=== PATIENT | male | born 1955 | race Caucasian/White ===

== ENCOUNTER 2019-02-03 16:57 | Inpatient (IN) | payer OTHER ==
[~2019-02-03] VITALS: Ht 185.4 cm; Wt 91.8 kg
--- NOTE | ~2019-02-03 | H ---
[facility] [place] [address] HISTORY AND PHYSICAL Name: ERIC DOW Room #: 527B-B ADM IN M.R.#: [id number] Admission: 02/03/19 ������������������ Attend Phys: Gilberto Do DO Discharge: ������������������ Date of : 51 Report #: [id number] THIS REPORT FOR: //name// CC: Gilberto Bran Lititz DATE OF SERVICE: 02/04/2019 IDENTIFYING INFORMATION: This is a 64-year-old male, , has 5 children. 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 CHIEF COMPLAINT: "Anxious." HISTORY OF PRESENT ILLNESS: This is a 64-year-old male who was admitted to [facility] with depressive symptoms and according to the reports, he was hiding a butter knife with the intent of harming himself. The patient reports he has been an ticket dispenser changer all his life. He retired 2 years ago and soon, he started experiencing his first episode of depression. He describes low energy, low motivation, anhedonia, feeling of depression, hopelessness with anxiety. He describes anxiety as chronic worries, doubt. He does not endorse any compulsive behavior, but feels he ruminates about thoughts whenever there is conflict within himself or by statements of others. The patient has been feeling frustrated, hopeless and was having suicidal ideations. He denies any recreational drug and alcohol use. He denies any auditory or visual hallucinations. No previous episodes of ziyad or hypomania. PAST PSYCHIATRIC HISTORY: The patient reports he has been hospitalized several times in the past. He has thought about suicide, but he denies any previous suicide attempts. He denies any self-harm behavior. No electroconvulsive therapy in the past. The patient sees Dr. Davis at for depression. 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 History of migraine, benign prostatic hypertrophy. PAST SURGICAL HISTORY: Tonsillectomy, inguinal hernia repair surgery. CURRENT MEDICATIONS: Zyprexa, Klonopin, Effexor, trazodone, Depakote, Remeron and propranolol. ALLERGIES: No known drug allergies. FAMILY HISTORY: Not significant. PERSONAL AND SOCIAL HISTORY: A 64-year-old male, was born and raised in [place]. The patient has 2 brothers and 1 sister growing up[place] [address] HISTORY AND PHYSICAL Name: ERIC DOW Room #: 527B-B [facility]#: [id number] Admission: 02/03/19 ������������������ Attend Phys: Gilbetro Do DO Discharge: ������������������ Date of : 51 Report #: [id number] 2-parent family. He denies any abuse growing up. 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 He has been once. He has 5 children, grown up. The patient is currently retired. REVIEW OF SYSTEMS: Denies any headache, chest pain or shortness of breath. PHYSICAL EXAMINATION: VITAL SIGNS: Temperature 36.4, pulse 50 per minute, blood pressure 147/92 mmHg. MENTAL STATUS EXAMINATION: This is a 64-year-old male, appears to be of his stated age, casually dressed, somewhat disheveled. He is alert and oriented to time, place and situation. He exhibits psychomotor slowing with some shuffling. No tremors evident. Mood is depressed. Affect is blunted. Immediate and recent memory is limited, able to remember 1 object out of 3 after 5 minutes. Remote memory appears intact. No hallucinations, no delusions. Significant cognitive distortions self of worthlessness. Insight and judgment are poor. Suicidal ideations present. No homicidal ideations. ASSETS: Verbal, supportive family. LIABILITIES: Chronicity of illness and physical health issues. DIAGNOSIS: Major depressive disorder, recurrent, severe without psychotic symptoms, rule out generalized anxiety disorder, rule out obsessive compulsive disorder, obsessive type; tonsillectomy, inguinal hernia repair surgery, benign prostatic hypertrophy, vocal cord growth. RECOMMENDATIONS: The patient will be monitored for sleep, appetite, mood and behavior. Collateral information will be obtained. Medical records will be reviewed and adjust medication according to response while we are monitoring sleep, appetite, mood, behavior, suicidal ideations. We will provide supportive environment, challenge cognitive distortions. ESTIMATED LENGTH OF STAY: Ten days plus. DISCHARGE CRITERIA: Absence of suicidal thoughts for 2 consecutive days prior to discharge. ��������������������������������������������� ���������������������������������������� By: ��������������������������������������������� [id number] Wei Alford MD /nt
[2019-02-03 17:43] VITALS: BP 158/82
--- NOTE | 2019-02-03 18:43 | NUR ---
PT. ADMITTED FROM PER [facility] ACCOMPANIED BY MINER OPERATOR AND [employer] LOCATION MANAGER OF [employer]. HE WAS COOPERATIVE WITH ADMISSION PROCESS, SKIN CHECK, AND VITALS. PT. ATTEMPTED TODAY TO CONCEAL A KNIFE TO CUT HIMSELF AND HAS ATTEMPTED TO PLACE A BAG OVER HIS HEAD. BOTH TIMES STAFF CAUGHT HIM AND HE STOPPED THIS BEHAVIOR. ABOUT A YEAR AGO HE CUT HIS WRIST WITH A KNIFE AND NEEDED HOSPITALIZED. HE HAS BEEN IN THE HOSPITAL TWO TIMES IN THE PAST FOR THESE BEHAVIORS. HIS LIVES ABOUT [address] HOU[address] AWAY AND IS COMING TOMORROW TO SEE PT. AND SIGN PAPERS. SHE IS HIS DPOA AT THIS TIMES. THE PAPERS ARE ON THE PT. CHART. NO OTHER PHYSICAL ILLNESSES NOTED AT THIS TIME.
[2019-02-03] MEDS ORDERED: NEURONTIN 300300 M1 PO (18:53)
[2019-02-03] MEDS ORDERED: ZYPREXA5 MG PO (19:02)
[2019-02-03] MEDS ORDERED: KLONOPIN0.5 MG PO (19:03)
[2019-02-03] MEDS ORDERED: VENLAFAXINE HC100 MG PO (19:04)
[2019-02-03] MEDS ORDERED: TRAZODONE HCL50 MG PO (19:06)
[2019-02-03] MEDS ORDERED: DEPAKOTE500 MG PO (19:07)
[2019-02-03] MEDS ORDERED: MIRTAZAPINE15 M2 PO (19:09)
[2019-02-03] MEDS ORDERED: PROPRANOLOL 1010 MG PO (19:10)
[2019-02-03 21:01] VITALS: BP 118/72
--- NOTE | 2019-02-03 23:42 | NUR ---
ASSUMED CARE OF THE PT AT 1914 PM. ALERT ET ORIENTED X 3. MAKES NEEDS KNOWN. THE PT HAS A FLAT AFFECT. DENIES ANXIETY AND DEPRESSION. DENIES SI AND HI. DENIES A/V HALLUNICATIONS. DENIES RACING THOUGHTS AND NIGHTMARES. REMAINS ON 12 MINUTE CHECKS FOR HIS SAFETY.
[2019-02-04] MEDS ORDERED: EFFEXOR XR150 MG PO (01:52)
--- NOTE | 2019-02-04 03:24 | NUR ---
THE PT APPEARS TO HAVE BEEN SLEEPING MOST OF THE NOC SHIFT. RESP., EVEN, AND UNLABORED. REMAINS ON 12 MINUTE CHECKS FOR HIS SAFETY.
[2019-02-04 05:40] VITALS: BP 150/91
[2019-02-04 07:45] VITALS: BP 147/92
--- NOTE | 2019-02-04 11:44 | NUR ---
ASSUMED PATIENT CARE AT 0700, PATIENT AWAKE IN BED. PATIENT AGREED TO COME TO D.R. FOR BREAKFAST; DID NOT HAVE A WHOLE SET OF CLOTHES TO WEAR IN HIS LOCKER. NURSE PROVIDED HIS BLUE JEANS TO HIM. STATED THAT HE NEEDED HIS RED SHIRT, WHICH IS NOT. SUSPECT RED SHIRT [facility] VISIT IN THE ER AT THAT HOSPITAL BEFORE BEING ADMITTED HERE. BLUNTED AFFECT, PACING BEHAVIOR WHILE IN HIS ROOM, IS ABLE TO SIT STILL FOR MEALS.
[2019-02-04 20:27] VITALS: BP 98/66
[2019-02-05 02:31] VITALS: BP 98/66
[2019-02-05 02:35] VITALS: BP 98/66
--- NOTE | 2019-02-05 02:49 | NUR ---
QUIET AND ON THE EDGE OF THE PEER GROUP. WATCHING TV. COOPERATED WITH ASSESSMENT. TOOK HS MEDS PRESCRIBED, AND WENT TO BED. SLEEPING WELL THROUGH THE NIGHT TO THIS POINT.
[2019-02-05 07:25] VITALS: BP 128/84
--- NOTE | 2019-02-05 10:33 | NUR ---
0720: Report from rec from [facility] shift, care assumed. Ambulatory in chowdary to DR, feeds self, appetite good, takes meds whole w/o difficulty. Participates in 0900 therapy group. Medications explained to pt, questions answered. No verbaliziation from pt about SI, denies hallucinations or intention to harm self.
[2019-02-05 19:46] VITALS: BP 93/55
--- NOTE | 2019-02-05 20:17 | NUR ---
ASSUMED CARE OF THE PT AT 1914 PM. ALERT ET ORIENTED X 4. MAKES NEEDS KNOWN. HEART RATE REGULAR. LUNGS CLEAR BILATERALLY. RESP., EVEN, AND UNLABORED. DENIES ANXIETY AND DEPRESSION, DENIES SI AND HI CURRENTLY. THE PT IS LYING IN BED WHEN THIS REHAB SERVICES AIDE CAME ON DUTY. VERY PLEASANT VOICE. DENIES A/V HALLUNICATIONS. REMAINS ON 12 MINUTE CHECKS FOR HIS SAFETY.
[2019-02-06 09:00] VITALS: BP 148/90
[2019-02-06 09:13] VITALS: BP 148/90
--- NOTE | 2019-02-06 09:30 | NUR ---
PT STATED HE HAS SOME ANXIETY AND LEVEL WAS 6 ON 1-10 SCALE. ASKED PATIENT WHAT DOES HE DO IF HE DIDN'T HAVE MEDICATION TO HELP RELIEVE ANXIETY, DIDN'T RESPOND WITH AN ANSWER. OFFED READ BOOKS OR WALK, MAYBE AN HOBBY.
--- NOTE | 2019-02-06 11:17 | NUR ---
ADM HYDROXINE 25MG PO FOR COMPLAINTS OF ANXIETY OF 6 ON 1-10 SCALE. THIS IS A NEW MED FOR ANXIETY SYMPTOMS.
--- NOTE | 2019-02-06 12:20 | NUR ---
PT STATED THAT HYRDOXINE HAS HELPED WITH ANXIETY FEELINGS. OUT TO EAT LUNCH. BEFORE HE STAYED IN ROOM PACING.
--- NOTE | 2019-02-06 17:00 | NUR ---
SW schedule a family meeting with the pt Gely. SW schedule for January at 11:30am.
--- NOTE | 2019-02-06 17:41 | NUR ---
PT HAS HAD GOOD DAY TODAY. PT ATTENDED GROUPS TODAY. PT REFUSED ANY MORE HYDROZINE AT THIS TIME. PT WAS IN ROOM AFTER AM GROUP, NOW IN DINING ROOM WITH OTHER PATIENTS.
[2019-02-06 19:53] VITALS: BP 116/72
--- NOTE | 2019-02-06 23:17 | NUR ---
WITHDRAWN MAJORITY OF SHIFT-DID COME OUT OF ROOM FOR HS SNACK WITH PROMPTING AND APPEARED TO VISIT BRIEFLY WITH FEMALE PEER-FLAT AFFECT-DELAYED VERBAL RESPONSES DURING 1'1 INTERACTION WITH THIS RN-DENIES CURRENT SI/SH AND MINIMIZES RECENT THOUGHTS PRIOR TO HSOPITAL STAY STATING "THEY WERE JUST FLEETING" I DIDN'T REALLY HAVE A PLAN. WHEN ASKED ABOUT TRIGGERS OR PRECIPITANTS TO SI STATES "WELL I WOUND UP ON THIS MEMORY CARE UNIT-I'M NOT SURE BUT I MAY HAVE TO GO BACK THERE" DOES REPORT INCREASED ANXIETY RATED A 7 ON 1-10 SCALE D/T UNKNOWN DC PLAN-REFUSES OFFERS OF VISTARIL PRN TO ASSIST WITH SLEEP/ANXIETY "I DON'T THINK I'LL NEED IT"
--- NOTE | 2019-02-07 04:11 | NUR ---
AWAKE AND ON TOILET FOR APPROX 45 MINUTES STATES FEELS LIKE HE HAS TO URINATE BUT HE CAN NOT-STATES HAS TAKEN FLOMAX FOR YEARS BUT IS NOT NOTED TO BE ON IT CURRENTLY-ENCOURAGED TOSPEAK TO MD IN AM-NO BLADDER DISTENSION /PELVIC TENDERNESS NOTED/DEMONSTRATED UPON EXAM
--- NOTE | 2019-02-07 06:00 | NUR ---
BLADDER SCAN COMPLETED D/T CONTINUED REPORTS OF FEELING "LIKE I NEED TO URINATE BUT I CAN'T" SCAN INDICATES APPROX 950CC IN BLADDER- [facility] CONTACTED ORDERS RECEIVED TO STRAIGHT CATH FOR UA-PT TOLERATED WELL APPROX 400 CC DARK YELLOW URINE DRAINED-SPECIMIN OBTAINED-REPORTS DECREASED PRESSURE IN PELVIC AREA-STATES WAS NOT AWARE HE WAS NO LONGER TAKING FLOMAX AND IS GLAD IT IS RESTARTED-FLOMAX 0.4MG GIVEN PO AT 0515 PER ORDER
[2019-02-07 07:21] LABS: URINE BILIRUBIN NEGATIVE (Negative); URINE BLOOD NEGATIVE (Negative); URINE CLARITY CLEAR; URINE COLOR YELLOW; URINE GLUCOSE-RANDOM* NEGATIVE (Negative); URINE KETONES TRACE (Negative); URINE LEUKOCYTES NEGATIVE (Negative); URINE NITRITE NEGATIVE (Negative); URINE PROTEIN (DIPSTICK) NEGATIVE (Negative); URINE UROBILINOGEN 0.2 E.U./dl (0.2-1.0)
--- NOTE | 2019-02-07 08:00 | NUR ---
PT SITTING ON TOILET AND STATED HE IS HAVING A HARD TIME TO VOID. HAD PT LAY IN BED AND PERFORMED BLADDER SCAN, 499ML IN BLADDER.
--- NOTE | 2019-02-07 08:12 | NUR ---
PT VOIDED, RECHECKED BLADDER SCAN WITH PT LAYING DOWN. BLADDER SCAN RESULT 393ML. PT STATED HE FELT BETTER AFTER HE VOIDED AND DIDN'T HAVE THE PRESSURE TO STOMACH BEFORE, ENCOURAGED PT TO STAND WHEN VOIDING AND NOT SITTING DOWN ON TOLIET.
[2019-02-07 10:01] VITALS: BP 134/98
[2019-02-07 15:25] VITALS: BP 134/98
--- NOTE | 2019-02-07 15:30 | NUR ---
PT HAS BEEN COMMUNICATING WITH STAFF. PT DENIES ANY ANXIETY TO THIS NURSE. PT HAS BEEN ATTENDING GROUPS. PT DAUGHTER VISITED TODAY, PT ALSO PARTICIPATED IN PETS THAT CAME TO VISIT.
[2019-02-07 19:47] VITALS: BP 107/64
--- NOTE | 2019-02-08 00:48 | NUR ---
SUPERFICIAL CONVERSATION DURING PM WRAP UP GROUP STATING HE FELT LIKE HE HAD MET HIS GOAL FOR THE DAY WHICH WAS HAVING LESS ANXIETY AND FEELING LESS ANXIOUS. VISTARIL 25 MG GIVEN PO PRN AT 2130 ALONG WITH HS MEDS FOR SLEEP/ANXIETY.FLAT AFFECT-DELAYED VERBAL RESPONSES.
[2019-02-08 07:29] VITALS: BP 124/89
[2019-02-08 11:55] VITALS: BP 124/89
--- NOTE | 2019-02-08 12:40 | NUR ---
PATIENT WITHDRAWN AND QUIET. WANDERS ABOUT ROOM - NEEDED REDIRECTION TO ATTEND BREAKFAST. STATES VERY ANXIOUS BUT UNABLE TO EXPLAIN WHY. CLAIMS IT IS CURRENT EVENTS IN HIS LIFE. HAVE NOT BEEN ABLE TO COPE. DENIES ANY THOUGHTS OF S/I CURRENTLY - GOAL IS TO BE BETTER ABLE TO DEAL WITH STRESSES. QUIET - UTILIZED IPAD THIS MORNING - ATTENDED GROUPS - MEDICATION COMPLIANT. FAMILY VISITED AND APPEARED TO GO WELL. RESPONSIVE TO QUESTIONS ADDRESSED TO HIM BUT SOMETIMES ONE WORD ANSWERS. NEEDS PROMPTING AND ENCOURAGEMENT. NOTED SHUFFLE IN HIS WALK WHEN AMBULATING. TO ADDRESS WITH FAMILY. NO AGITATION OR AGGRESSIVE BEHAVIOR. CALM, COOPERATIVE - NEEDING REDIRECTION AND ENCOURAGEMENT.
[2019-02-08 20:12] VITALS: BP 123/69
--- NOTE | 2019-02-08 20:16 | NUR ---
ASSUMED CARE @ 19:15. IN BED WITH LIGHTS OFF. OPENED EYES TO KNOCK AND VOICE. DENIED SI AND HI. DENIED CURRENT NEEDS. COOPERATED WITH ASSESSMENT. WILL CONTINUE TO MONITOR.
--- NOTE | 2019-02-08 21:52 | NUR ---
2100 MEDS TAKEN WHOLE WITH WATER. EYEDROPS PROVIDED. DENIES NEEDS, WILL CONTINUE TO MONITOR.
--- NOTE | 2019-02-09 06:38 | NUR ---
Slept 8 hours.
[2019-02-09 07:00] VITALS: BP 125/80
--- NOTE | 2019-02-09 09:42 | NUR ---
ASSUMED CARE OF PT APPROX 0730, REPORT WAS GIVEN PT C/O HIS UPPER LEFT EXTREMITY, COLD TO TOUCH, VS TAKEN, WNL FOR HIM, 02 SATURATION DIFFERENT FROM RIGHT TO LEFT HAND, PT EXPLAINS HE HAS HAD LEFT WRIST SURGERY AND THIS IS CHRONIC. LATER IN DAY ROOM HIS BREATHING IS RAPID, AGAIN REPORTED OFF HIS NORM, GAVE GENTLE REMINDER OF HIS FAST SHALLOW BREATHING AND HOW IT RETAINS CARBON DIOXIDE AND WORSENS HIS ANXIETY. HE DID RETURN DEMO ON SLOW DEEP BREATHING. SAID HE DIDN'T WANT HIS TO COME VISIT AND SEE HIM THIS WAY. THEN CHANGED HIS MIND. LET HIM KNOW WE'D WALK IN THE HALLWAY LATER TO HELP WITH CIRCULATION AND ANXIETY. HE WANTED TO WALK IMMEDIATELY YET THIS NURSE STILL IN MIDST OF MED PASS/ASSESSMENT. ENCOURAGED HIM W/WALK LATER. WILL CONTINUE TO MONITOR, HE'S A&0X3 AT THIS TIME, AMB STEADY
--- NOTE | 2019-02-09 15:30 | NUR ---
Date of Admission: 02/03/19 Date of Activity Therapy Assessment: 02/06/19 Activity Goal: Manage anxiety symptoms Initial Goal: 1 Group activity/day Weekly progress towards goal: On track Group participation level: Moderate Behaviors observed: Pt attends most groups, though states he experiences anxiety in the mornings and shows spotty participation during those times. Pt mood is depressed and flat. Plan: No change towards goal
--- NOTE | 2019-02-09 20:10 | NUR ---
ASSUMED CARE @ 19:15. IN ROOM LYING IN BED. ASSESSMENT COMPLETE, HRRR LUNGS CTA, ABD NORMOACTIVE. DENIES PAIN. WILL CONTINUE TO MONITOR.
[2019-02-09 20:18] VITALS: BP 97/58
--- NOTE | 2019-02-10 05:21 | NUR ---
SLEPT WELL THROUGH THE NOC.
--- NOTE | 2019-02-10 06:27 | NUR ---
SLEPT 10 HOURS.
--- NOTE | 2019-02-10 08:33 | NUR ---
ADM HYDROXYZIN 25MG PO FOR ANXIETY.
--- NOTE | 2019-02-10 08:37 | NUR ---
PT STATED VERY ANXIOUS TODAY ON SCALE 0-10, PT STATED ITS WAY UP THERE. PT EATING BREAKFAST AND GOING BACK TO ROOM AND PACING. PT LUNGS CLEAR AND ON ROOM AIR. PT HAS STEADY GAIT. PT WILL ACCEPT ANTI-ANXIETY MEDICATION.
[2019-02-10 09:00] VITALS: BP 114/71
[2019-02-10 10:31] LABS: HEMATOCRIT 40.9 % (42.0-52.0); HEMOGLOBIN 13.8 gm/dL (14.0-18.0); MCH 29.9 pg (26.0-34.0); MCHC 33.7 g/dL (28.0-37.0); MCV 88.8 fL (80.0-100.0); RBC 4.61 mil/uL (4.50-6.00); RDW 16.4 % (10.5-14.5); WBC 5.4 thou/uL (4.0-11.0)
[2019-02-10 10:39] LABS: CREATININE 0.8 mg/dL (0.7-1.3); MAGNESIUM 1.8 mg/dL (1.8-2.4); POTASSIUM 3.8 mmol/L (3.5-5.1)
[2019-02-10 10:45] VITALS: BP 114/91
--- NOTE | 2019-02-10 16:03 | NUR ---
PT HAS BEEN WALKING IN [place] A FEW TIMES TODAY. SEEMS NOT ANXIOUS AT THIS TIME.
[2019-02-10 19:47] VITALS: BP 119/59
--- NOTE | 2019-02-10 21:30 | NUR ---
assumed care of the pt at 191 pm. alert et oriented x 4. makes needs known. took his medications without difficulty. continues to have a flat affect. remains on 12 minute checks for his safety.
--- NOTE | 2019-02-11 03:17 | NUR ---
THE PT HAS BEEN IN BED MOST OF THE SHIFT. RESP., EVEN, AND UNLABORED. MAKES NEEDS KNOWN.
[2019-02-11 08:00] VITALS: BP 110/72
--- NOTE | 2019-02-11 08:30 | NUR ---
PT ATE BREAKFAST THIS AM AND THEN UP WALKING AROUND UNIT. PT PACES IN [place] OR ROOM. PT STATED HE GETS MORE ANXIETY IN AM. PT STATED IT STARTED AFTER HE RETIRED. PT STATED LAST BM YESTERDAY. LUNGS CLEAR. PT PARTICIPATING IN GROUP.
--- NOTE | 2019-02-11 09:44 | NUR ---
PT ASKED FOR ANTI-ANXIETY MED. ADM HYDROXYZIN 25MG PO FOR ANXIETY.
--- NOTE | 2019-02-11 18:08 | NUR ---
PT HAS ATTENDED GROUPS TODAY. PT HAS NOT ASKED FOR ANYTHING ELSE FOR ANXIETY.
[2019-02-12 00:30] VITALS: BP 110/72
--- NOTE | 2019-02-12 04:09 | NUR ---
ASSUMED CARE @ 19:15. IN BED, EYES CLOSED. AWAKENED TO VOICE, ALLOWED ASSESSMENT AND VS. HRRR, LUNGS CTA, ABD [id number]. DENIES SI. REPORTS ANXIETY, WORRYING ABOUT TOMORROW. SLEPT WELL. AWAKENED TO GIVE 0000 MEDS. RETURNED TO SLEEP. WILL CONTINUE DOING 12 MINUTE ROUNDS FOR PT SAFETY.
--- NOTE | 2019-02-12 05:56 | NUR ---
SLEPT 9.8 HOURS NOC.
[2019-02-12 07:45] VITALS: BP 144/95
--- NOTE | 2019-02-12 10:34 | NUR ---
ASSUMED PATIENT CARE AT 0715. PATIENT UP IN HIS ROOM, APPEARED ANXIOUS. ALSO VERBALIZED THAT HE WAS VERY ANXIOUS, STATED ANXIETY OVERWHELMING. NURSE ENCOUYRAGED TO RELAX AND TAKE SLOW DEEP BREATHS. PATIENT DID COME TO BREAKFAST, SOME PARTICIPATION IN R.T. GROUP, ALSO A.M. GOALS GROUP. PACING IN D.R. AT THIS TIME.
--- NOTE | 2019-02-12 11:19 | NUR ---
Nutrition: pt admitted with depression, SI and seen due to LOS on [facility] unit. Pt eating 100% of meals on regular diet and reports likes the food he is getting. Stable weights reported. No nutritional concerns. Low nutrition risk.
--- NOTE | 2019-02-12 11:27 | NUR ---
ASSUMED PATIENT CARE AT 0715. PATIENT UP IN ROOM, PACING, LOOKING VERY TENSE. PATIENT STATED THAT HE WAS EXTREMELY ANXIOUS. NURSING ENCOURAGED PATIENT TO PRACTICE SLOW, DEEP BREATHING TO HELP HIM RELAX. FLAT AFFECT, SAD MOOD, ANXIOUS BEHAVIOR, EVIDENCED BY PATIENT PACING. CONTINUE TO MONITOR.
[2019-02-12 11:49] VITALS: BP 144/95
--- NOTE | 2019-02-12 12:45 | NUR ---
KELLY faxed the d/c documents to [facility] to Alem. KELLY provided contact information if she have any questions.
[2019-02-12 19:35] VITALS: BP 106/57
--- NOTE | 2019-02-12 21:47 | NUR ---
ASSUMED CARE OF THE PT AT 191 PM. ALERT ET ORIENTED X 3. MAKES NEEDS KNOWN. WALKS WITH A STEADY GAIT. DENIES ANXIETY AND DEPRESSION. DENIES SI/HI, A/V HALLUNICATIONS, RACING THOUGHTS AND NIGHTMARES. REMAINS ON 12 MINUTE CHECKS. FOR HIS SAFETY.
--- NOTE | 2019-02-13 07:01 | NUR ---
the pt slept 10.0 hours last night.
[2019-02-13 07:47] VITALS: BP 143/86
--- NOTE | 2019-02-13 08:30 | NUR ---
PT FINISHED BREAKFAST FAST. PT STATED HE HAS INCREASED ANXIETY IN THE AM MORE THAN ANYTIME OF THE DAY. NOTICED HYPERVENTILATING BREATHING. PT STATED HE FEELS LIKE SOMETHING IS WRONG.
[2019-02-13 09:00] VITALS: BP 143/86
--- NOTE | 2019-02-13 16:42 | NUR ---
PT WALKING AROUND IN THE UNIT. DIDN'T SEEM SO ANXIOUS.
[2019-02-13 20:08] VITALS: BP 102/62
--- NOTE | 2019-02-13 23:49 | NUR ---
ASSUMED CARE OF THE PT AT 191 PM. ALERT ET ORIENTED X 3. SPEAKS WITH A SOFT VOICE. DENIES SI/HI, A/V HALLUNICATIONS. DENIES ANXIETY AND DEPRESSION. WALKS WITH A STEADY GAIT. REMAINS ON 12 MINUTE CHECKS FOR HIS SAFETY.
--- NOTE | 2019-02-14 05:48 | NUR ---
THE PT GOT UP FROM BED AFTER TAKING HIS AM MEDICATIONS, HE WAS A LITTLE UNSTEADY ON HIS FEET, ACCORDING TO THE COST ACCOUNTING CLERK, TOOK THE PT'S VITAL SIGNS WHICH WERE 136/74, 71 AND O2 SAT 98%. THE PT MENTIONED TO THIS BLOCK HACKER HE DIDN'T WANT TO GO BACK TO THE ASS[facility] PLACE WHERE HE CAME FROM. HE SAID THAT THIS WOULD HAPPEN AGAIN, THAT THEY WOULD DO THE SAME DANCE ALL OVER AGAIN. WILL PASS ONTO THE NEXT SHIFT REGARDING HIS FEELINGS. REMAINS ON 12 MINUTE CHECKS FOR HIS SAFETY.
--- NOTE | 2019-02-14 10:03 | NUR ---
UP TO DINING ROOM FOR BREAKFAST. GOOD APPETITE. REPORTS FEELING ANXIOUS. VOICE VERY QUIET AND DIFFICULT TO UNDERSTAND. PARTICIPATED IN GROUPS.
--- NOTE | 2019-02-14 16:29 | NUR ---
SW faxed update notes to Emmie in [facility]. SW mention that pt will be discharging on , February 15, 2019. SW have arrange transportation for the pt on tomorrow at 1:30pm. SW will follow-up with the family upon discharge.
[2019-02-14 19:52] VITALS: BP 114/71
--- NOTE | 2019-02-15 04:54 | NUR ---
Pt verbalized he is not ready to go home, that he is concerned he will have to return. Pt denied having an outpatient dr or therapist to work with.
--- NOTE | 2019-02-15 04:57 | NUR ---
PT AWAKE, CONCERN ABOUT HIM NOT READY TO GO HOME YET, CONTINUE TO REITERATE THIS, INFORM HIM WILL PASS THIS ON TO THE DAY RN, GIVEN AM MEDS AT THIS TIME, PT UP AND AMBULATING AROUND THE [place] WAY.
[2019-02-15] MEDS ORDERED: FLOMAX0.4 MG PO (06:06)
[2019-02-15] MEDS ORDERED: PROPRANOLOL 1010 MG PO (06:06)
[2019-02-15] MEDS ORDERED: DEPAKOTE500 MG PO (06:07)
[2019-02-15] MEDS ORDERED: EFFEXOR XR75 MG PO (06:07)
[2019-02-15] MEDS ORDERED: ZYPREXA 5 MG TAB5 M1 PO (06:08)
[2019-02-15] MEDS ORDERED: LATANOPROST2.5 ML OPHTHALMIC (06:09)
--- NOTE | 2019-02-15 09:06 | NUR ---
KELLY spoke with Alyx at [facility] concerning pt being discharge. Alyx was speaking to Alem in mention that the SW from [facility] is on the phone, and she would like to speak with you. Alem refuse in told her to tell me that she will call me back later. KELLY mention if Alyx could let Alem know that pt will be discharging at 1330 this afternoon, and all update notes have being sent. KELLY will follow-up with the pt upon discharge.
--- NOTE | 2019-02-15 11:43 | NUR ---
PATIENT HAS BEEN UP AND OUT ON THE UNIT, VERY ANXIOUS THIS MORNING REQUIRING PRN MEDICATION. ATIVAN 1MG GIVEN AT 0816 HOURS WITH POSITIVE EFFECT. PATIENT HAS BEEN CALM, HAD BREAKFAST, TOOK ALL HIS MORNING MEDICATION WITHOUT DIFFICULTY. PATIENT PARTICIPATED IN MORNING GROUP WITHOUT ANY DIFFICULTY. PATIENT DENISIES SUICIDAL/HOMOCIDAL IDEATION. BOTH DEPRESSION AND ANXIETY RATED 4/10 AT THIS TIME, "MY ANXIETY IS GOOD NOW". PATIENT DENIES AUDITORY/VISUAL HALLUCINATION, HE DENIES HAVING PHYSICAL PAIN. PATIENT IS EATING MEALS, AND DRINKING FLUID WELL. HE IS CURRENTLY SITTING IN DAY ROOM WATHCING TV. PATIENT IS DISCHARGEED TO THE [facility] BY DR. KATZ TODAY AWAITING PICK-UP [facility]. WILL MONITOR FOR SAFETY.
--- NOTE | 2019-02-15 11:46 | NUR ---
Patient Name: ERIC DOW Admission Date: 02/03/19 DISCHARGE PLAN: Pt will be discharging to [facility] ER. Care Assessment: Pt was assessed by Dr. Do, and diagnosed with Front Temporal Dementia Level II Assessment: None Transportation: Pt will be transported by [facility] Special Instructions/Notes: Dr. Do recommended that pt be in a memory care setting. Dr. Do and explained to pt Nereida the importance of family support concerning care and wellbeing. DISCHARGE TO FACILITY: Memory Care unit Facility: [facility] Fax: Address: [address] [place] [id number] Contact Name: Alyx PCP: SHAYAN Psychiatrist: LINSEY Psychiatrist
[2019-02-15 14:36] VITALS: BP 131/82
--- NOTE | 2019-02-15 16:14 | EKG ---
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 Hand: KALEB : 1955 Requested By: Gilberto Do Order Number: [id number] MD: Anthony Downs Measurements Intervals Belt Rate: 60 P: 42 WV: 165 QRS: 27 QRSD: 100 T: 62 QT: 441 QTc: 441 Interpretive Statements Sinus rhythm Nonspecific T abnrm, anterolateral leads Baseline wander in lead(s) V2 No previous ECG available for comparison Electronically Signed On 02-15-2019 16:14:17 CDT by Anthony Downs [email or web address] ��������������������������������������������� <ELECTRONICALLY SIGNED> ���������������������������������������� By: Anthony Downs MD ��������������������������������������������� 02/15/19 [id number] [id number] Anthony Downs MD /GABBY
--- NOTE | 2019-02-19 00:01 | D ---
[facility] [place] [address] DISCHARGE SUMMARY Name: JAYSHREEJJPAO Room #: 527B-B [facility] M.R.#: [id number] Admission: 02/03/19 ������������������ Attend Phys: Wei Alford MD Discharge: 02/15/19 ������������������ Date of : 51 Report #: [id number] THIS REPORT FOR: //name// CC: Shant Alford DATE OF SERVICE: 02/15/2019 ATTENDING PHYSICIAN: Gilberto Do DO CORROSION CONTROL TECHNICIAN AT THE TIME OF DISCHARGE: Edmar Hoffman MD DISCHARGE DIAGNOSES: 1. Major neurocognitive disorder, likely due to frontotemporal dementia with behavioral disturbance, some improvement. 2. 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 3. Generalized anxiety disorder, variable improvement. MEDICAL COMORBIDITIES: Include BPH. He is on Flomax. History of migraines and none during the hospitalization. DISCHARGE DIET: Regular. ACTIVITY LEVEL: As tolerated. The patient will require 24/7 supervision assistance due to his major neurocognitive disorder. He was discharged to the [facility]. Psychiatric and medical care would be at that facility. REASON FOR ADMISSION: Several suicidal gestures including placing a bag over his head. HOSPITAL COURSE: The patient was admitted to the Geriatric Psychiatry Unit. He was admitted over the week and initially cared for by Dr. Wei Alford. I took case up shortly thereafter. We did have some difficulty with the case as his lives in [place], [place], and turned out he had a professional marketing manager managing his local affairs. I noticed that there was significant marital discord prior to his placement last April. reported she had not been given a diagnosis of frontotemporal dementia. There was some concrete evidence to that as well as same diagnosis from outside records obtained from [facility]. Nonetheless, it was emphasized that patient needs stimulation structure support including supportive psychotherapy. I would recommend that the both taking into consideration her distance from the and also the status of their marriage as things stand, it sounds like it is somewhat unhealthy for both. The patient does have some adult children, but they were not involved in his care. [facility] [address] [place] [address] DISCHARGE SUMMARY Name: ERIC DOW Room #: 527B-B [facility] .R.#: [id number] Admission: 02/03/19 ������������������ Attend Phys: Wei Alford MD Discharge: 02/15/19 ������������������ Date of : 51 Report #: [id number] LABORATORY DATA: Labs this admission was as follows: CBC was within normal limits except H and H 13.8 and 40.9. Chemistry is within normal limits except BUN . This is on 02/10/2019. Urinalysis showed trace ketones, otherwise within normal limits. The patient's Depakote regimen wasincreased. During the course of hospitalization, several medication adjustments were made. He was placed on olanzapine 2.5 mg 3 times a day. Propranolol was decreased from 4 times a day to twice a day due to mild bradycardia. Recommended not being on any scheduled benzodiazepines. Depakote was continued at 500 mg t.i.d. He was placed on latanoprost for self-reported glaucoma. His Effexor was lowered slightly to 225 mg daily. Above will be his discharge medications. MENTAL STATUS EXAMINATION: GENERAL: On the day of discharge, well-developed, tall male, appearing stated age. VITAL SIGNS: Temperature 36.7, pulse 87, respirations 16, BP 131/82, O2 sat 99%. MENTAL STATUS EXAMINATION: This is a well-developed, tall, somewhat disheveled male, appearing nearly stated age. Attention intact, concentration intact. Speech slow, low volume, hot potatoe voice due to reported vocal cord growth No psychomotor agitation at the time of discharge. He did have a panic attack earlier that morning and was treated with lorazepam on top of the Zyprexa. Memory not significantly impaired. Insight limited. Judgment limited. Mood and affect constricted. Prognosis for this patient is guarded. ��������������������������������������������� <ELECTRONICALLY SIGNED> ���������������������������������������� By: Gilberto Do DO ��������������������������������������������� 02/19/19 0001 [id number] Gilberto Do DO /nt
== END 2019-02-15 13:58 | DRG 57 ==
LOC: SBH 16:57
PROVIDERS: Internal Medicine; Nurse Practitioner Acute Care; ADMIT Psychiatry & Neurology Psychiatry
DX: G31.09 Other frontotemporal neurocognitive disorder (principal); R45.851 Suicidal ideations; F01.51 Vascular dementia, unspecified severity, with behavioral disturbance; F02.81 Dementia in other diseases classified elsewhere, unspecified severity, with behavioral disturbance; F33.2 Major depressive disorder, recurrent severe without psychotic features; F42.9 Obsessive-compulsive disorder, unspecified; F41.1 Generalized anxiety disorder; F68.8 Other specified disorders of adult personality and behavior; N40.0 Benign prostatic hyperplasia without lower urinary tract symptoms; G43.909 Migraine, unspecified, not intractable, without status migrainosus; Z79.899 Other long term (current) drug therapy
CPT/HCPCS: 10880